=== PATIENT | female | born 1990 | race Two or more races ===

== ENCOUNTER 2016-11-05 07:43 | Emergency (ER) | payer OTHER, MEDICAID ==
[~2016-11-05] VITALS: Ht 165.1 cm; Wt 80.1 kg
[2016-11-05 08:07] VITALS: BP 129/77
== END 2016-11-05 08:36 | disposition home or self-care (01) ==
LOC: ER 07:44
DX: Z76.1 Encounter for health supervision and care of foundling (principal); Z03.89 Encounter for observation for other suspected diseases and conditions ruled out